=== PATIENT | female | born 1965 | race Caucasian/White ===

== ENCOUNTER 2021-01-21 23:27 | Emergency (ER) | payer OTHER ==
[2021-01-21 23:50] LABS: HEMOGLOBIN 13.8 gm/dl (12.3-15.3); RED BLOOD COUNT 4.26 M/UL (4.00-5.10); WHITE BLOOD COUNT 10.7 K/UL (4.5-11.0)
[2021-01-22 00:12] LABS: BUN/CREATININE RATIO 18 (0-10)
== END 2021-01-22 00:30 | disposition other institution (70) ==
LOC: ER1 23:27
PROVIDERS: Emergency Medicine
DX: I63.9 Cerebral infarction, unspecified (principal); I61.9 Nontraumatic intracerebral hemorrhage, unspecified
CPT/HCPCS: 31500; 36415; 36600; 70450; 71045; 80053; 82550; 82553; 82803; 82962; 83874; 84484; 85025; 85610; 85730; 93005; 94002; 94760; 99285